=== PATIENT | female | born 1990 | race Caucasian/White ===

== ENCOUNTER 2024-03-04 19:43 | Emergency (ER) | payer SELFPAY ==
[~2024-03-04] VITALS: Ht 162.6 cm; Wt 93.2 kg
[2024-03-05] MEDS ORDERED: IBUP-1022 PO (01:38)
[2024-03-05] MEDS: IBUPROFEN 600MG TAB PO ONE (01:46)
[2024-03-05 01:58] VITALS: BP 147/76; TEMP 96.9; O2SAT 99
== END 2024-03-05 02:12 | disposition home or self-care (01) ==
LOC: M ED 19:43
DX: S93.401A Sprain of unspecified ligament of right ankle, initial encounter (principal); X50.1XXA Overexertion from prolonged static or awkward postures, initial encounter; Y92.009 Unspecified place in unspecified non-institutional (private) residence as the place of occurrence of the external cause; Y93.9 Activity, unspecified; Y99.9 Unspecified external cause status